=== PATIENT | female | born 1980 | race Caucasian/White ===

== ENCOUNTER 2016-06-21 09:26 | Emergency (ER) | payer MEDICAID, OTHER ==
[~2016-06-21] VITALS: Ht 160 cm; Wt 83.9 kg
--- NOTE | 2016-06-21 09:30 | NUR ---
PRESENTS SELF TO ED ACCOMPANIED BY HER MOTHER DUE TO MID LOWER BACK PAINSP PICKING UP TRASH ON KNEE LEVEL. PATIENT IS AMBULATORY ON ARRIVAL HOWEVER, PT IS COMPALINING OF 10/10, SHARP PAIN THAT RADIATED TO HER RIGHT LEG. PT VERBALIZED NOT BEING ABLE TO BEAR KEENE COMPLETELY DUE TO PAIN. PATIENT IS AFEBRILE. VSS. AWAITING FOR MD HDZ
--- NOTE | 2016-06-21 09:41 | NUR ---
MD KRUEGER AT BEDSIDE FOR EVALUATION
[2016-06-21] MEDS ORDERED: DIAZEPAM 5 MG TABLET ONE (09:47)
[2016-06-21] MEDS ORDERED: HYDROCODONE/APAP 5/325MG 1 EACH TABLET ONE (09:48)
[2016-06-21] MEDS ORDERED: IBUPROFEN 600 MG TABLET PO ONE ×2 (09:49→10:00)
[2016-06-21] MEDS ORDERED: ONDANSETRON 4 MG TAB.RAPDIS ONE (09:49)
--- NOTE | 2016-06-21 09:55 | NUR ---
MEDICATED PATIENT ORDERED
[2016-06-21] MEDS ORDERED: DIAZEPAM 10 MG TABLET PO ONE (10:00)
[2016-06-21] MEDS ORDERED: ONDANSETRON 4 MG TAB.RAPDIS SL ONE (10:00)
[2016-06-21] MEDS ORDERED: HYDROCODONE/APAP 5/325MG 1 EACH TABLET PO ONE (10:00)
[2016-06-21 11:12] VITALS: BP 126/77
--- NOTE | 2016-06-21 11:12 | NUR ---
Patient discharged to home in stable condition. Written and verbal after care instructions given. Patient verbalizes understanding of instruction.
== END 2016-06-21 11:14 | disposition home or self-care (01) ==
LOC: ER 09:28
DX: M54.5 Low back pain (principal); Z88.0 Allergy status to penicillin
CPT/HCPCS: 99284; A4606; Q0162; Z7610

== ENCOUNTER 2018-08-19 17:37 | Emergency (ER) | payer BC, MEDICAID ==
[~2018-08-19] VITALS: Ht 160 cm; Wt 81.6 kg
[2018-08-19 17:47] VITALS: BP 134/84
[2018-08-19] MEDS ORDERED: IBUPROFEN 600 MG TABLET PO ONE ×2 (18:00→18:32)
== END 2018-08-19 19:31 | disposition home or self-care (01) ==
LOC: ER 17:41
DX: M77.51 Other enthesopathy of right foot and ankle (principal); Z88.0 Allergy status to penicillin
CPT/HCPCS: 73630-TC